=== PATIENT | female | born 1990 | race Caucasian/White ===

== ENCOUNTER 2016-11-11 16:15 | Observation (INO) | payer MEDICAID, OTHER ==
[~2016-11-11] VITALS: Ht 157.5 cm; Wt 84.4 kg
[2016-11-11 18:17] VITALS: BP_SYST 145
== END 2016-11-11 17:30 | disposition home or self-care (01) ==
LOC: SPU 16:15
PROVIDERS: ADMIT Specialist; ATTEND Specialist
DX: O62.9 Abnormality of forces of labor, unspecified (principal); Z3A.00 Weeks of gestation of pregnancy not specified
CPT/HCPCS: 81002; G0378